=== PATIENT | male | born 1940 | race African-American/Black ===

== ENCOUNTER 2019-03-27 15:18 | Emergency (ER) | payer OTHER ==
[~2019-03-27] VITALS: Ht 157.5 cm; Wt 65.8 kg
[~2019-03-27 15:18] MED LIST: LIPITOR10 MG PO; LISINOPRIL10 MG PO
[2019-03-27] MEDS ORDERED: TRIMETHOPRIM /P10 M1 OPHTHALMIC (17:09)
[2019-03-27 18:01] VITALS: BP 140/77
== END 2019-03-27 17:35 | disposition home or self-care (01) ==
LOC: ER 15:18
DX: S05.02XA Injury of conjunctiva and corneal abrasion without foreign body, left eye, initial encounter (principal); I10 Essential (primary) hypertension; E78.00 Pure hypercholesterolemia, unspecified; W22.8XXA Striking against or struck by other objects, initial encounter; Y92.89 Other specified places as the place of occurrence of the external cause; Y93.89 Activity, other specified; Y99.8 Other external cause status